=== PATIENT | female | born 1970 | race Caucasian/White ===

== ENCOUNTER 2017-02-05 20:03 | Emergency (ER) | payer MEDICAID ==
[~2017-02-05] VITALS: Ht 154.9 cm; Wt 90.9 kg
[~2017-02-05 20:03] MED LIST: ALPR0.255 PO; FERS325 PO; HYDR25TA PO
[2017-02-05 20:39] LABS: BASOPHILS % (AUTO) 0.1 % (0.0-2.0); EOSINOPHILS % (AUTO) 0.6 % (1.0-6.0); HEMATOCRIT 29.8 % (36-46); LYMPHOCYTES # (AUTO) 1.5 K/uL (1.0-4.8); LYMPHOCYTES % (AUTO) 11.8 % (22.0-44.0); MEAN CORPUSCULAR HEMOGLOBIN 19.1 pg (26.0-34.0); MEAN CORPUSCULAR HGB CONC 30.3 G/dL (31.0-37.0); MEAN CORPUSCULAR VOLUME 63 fL (80-100); MONOCYTES # (AUTO) 1.3 K/uL (0.1-1.0); MONOCYTES % (AUTO) 10.8 % (2.0-9.0); NEUTROPHILS # (AUTO) 9.5 K/uL (1.8-7.7); NEUTROPHILS % (AUTO) 76.7 % (40.0-70.0); PLATELET COUNT (AUTO) 405 K/uL (150-450); RED BLOOD CELL COUNT(AUTO) 4.73 MIL/uL (4.00-5.20); RED CELL DISTRIBUTION WIDTH 22.9 % (11.5-14.5); WHITE BLOOD COUNT (AUTO) 12.4 K/uL (4.5-11.0)
[2017-02-05 20:42] LABS: ADD UA MICROSCOPIC YES; APPEARANCE,URINE CLOUDY (CLEAR); GLUCOSE, URINE (UA) NEGATIVE (NEGATIVE); KETONES,URINE NEGATIVE (NEGATIVE); LEUKOCYTE ESTERASE ,URINE SMALL (NEGATIVE); OCCULT BLOOD,URINE NEGATIVE (NEGATIVE); PROTEIN,URINE NEGATIVE (NEGATIVE)
[2017-02-05 20:45] LABS: RBC,URINE 0-2 /HPF (0-2); SQUAMOUS EPITHELIAL CELL,UR Many /LPF (None Seen)
[2017-02-05 20:59] LABS: ANION GAP 9 mmol/L (8-16); CALCIUM, TOTAL 8.6 mg/dL (8.8-10.5); CARBON DIOXIDE 30 mmol/L (22-29); CHLORIDE 99 mmol/L (98-107); CREATININE 0.47 mg/dL (0.60-1.30); GLOMERULAR FILTR. RATE CALC > 60 mL/min (>60); POTASSIUM 3.4 mmol/L (3.5-5.1); SODIUM SERUM 138 mmol/L (136-145); UREA NITROGEN, BLOOD 7 mg/dL (7-18)
[2017-02-05 21:03] LABS: ALANINE AMINOTRANSFERASE 80 U/L (12-78); ALBUMIN 2.8 g/dL (3.4-5.0); ASPARTATE AMINOTRANSFERASE 63 U/L (15-37); BILIRUBIN,TOTAL 0.3 mg/dL (0.1-1.0); TOTAL PROTEIN, SERUM 7.6 g/dL (6.4-8.2)
[2017-02-05 21:08] LABS: RBC MORPHOLOGY COMMENT ABNORMAL RBC MORPH
[2017-02-05] MEDS ORDERED: BARIUM SULFATE 0.1% SUSPENSION 450 ML BOTTLE PO ONE (21:15)
[2017-02-05] MEDS ORDERED: MORPHINE SULFATE 4 MG/ML SYRINGE IVP ONE (21:15)
[2017-02-05] MEDS ORDERED: ONDANSETRON HCL 4 MG/2 ML VIAL IVP ONE (21:15)
[2017-02-05] MEDS ORDERED: SODIUM CHLORIDE 0.9% 1,000 ML IV ONE (21:15)
[2017-02-05] MEDS ORDERED: IOVERSOL 350 MG/ML 100 ML VIAL ONE (21:35)
[2017-02-06] MEDS ORDERED: MetroNIDAZOLE 250 MG TABLET PO ONE
[2017-02-06] MEDS ORDERED: CIPROFLOXACIN HCL 250 MG TABLET PO ONE
[2017-02-06 00:29] VITALS: BP 133/78
== END 2017-02-06 00:37 | disposition home or self-care (01) ==
LOC: EMS 20:05
DX: K57.92 Diverticulitis of intestine, part unspecified, without perforation or abscess without bleeding (principal); I10 Essential (primary) hypertension
CPT/HCPCS: 36415; 74177; 80053; 81001; 83690; 84703; 85025; 87086; 96374; 96375; 99285; J2270; J2405; J7030; Q9967; Z7610

== ENCOUNTER 2017-10-21 10:50 | Emergency (ER) | payer MEDICAID ==
[~2017-10-21] VITALS: Ht 152.4 cm; Wt 93.2 kg
[~2017-10-21 10:50] MED LIST changes: +FERR-89 PO; -FERS325 PO
[2017-10-21 11:16] VITALS: BP 145/91
[2017-10-21] MEDS ORDERED: ALPR0.5T8 PO (11:23)
[2017-10-21] MEDS ORDERED: IBUPROFEN 600 MG TABLET PO ONE (11:30)
== END 2017-10-21 12:12 | disposition home or self-care (01) ==
LOC: EMS 10:51
DX: J03.90 Acute tonsillitis, unspecified (principal); J02.9 Acute pharyngitis, unspecified; I10 Essential (primary) hypertension
CPT/HCPCS: 99283

== ENCOUNTER 2018-07-09 12:46 | Emergency (ER) | payer MEDICAID ==
[~2018-07-09] VITALS: Ht 157.5 cm; Wt 84.1 kg
[~2018-07-09 12:46] MED LIST changes: -ALPR0.255 PO; +ALPR0.5T8 PO
[2018-07-09] MEDS ORDERED: MICONAZOLE NITRATE 2% 85 GM POWDER TP ONE (13:15)
[2018-07-09 13:33] LABS: HEMOGLOBIN 10.9 g/dL (12.0-16.0); MEAN CORPUSCULAR HEMOGLOBIN 21.5 pg (26.0-34.0); MEAN CORPUSCULAR VOLUME 67 fL (80-100); PLATELET COUNT (AUTO) 358 K/uL (150-450); RED BLOOD CELL COUNT(AUTO) 5.04 MIL/uL (4.00-5.20); RED CELL DISTRIBUTION WIDTH 21.2 % (11.5-14.5)
[2018-07-09 13:39] LABS: ANION GAP 6 mmol/L (8-16); CALCIUM, TOTAL 9.1 mg/dL (8.8-10.5); CARBON DIOXIDE 30 mmol/L (22-29); CHLORIDE 103 mmol/L (98-107); CREATININE 0.49 mg/dL (0.60-1.30); GLOMERULAR FILTR. RATE CALC > 60 mL/min (>60); GLUCOSE,RANDOM 104 mg/dL (70-110); POTASSIUM 3.7 mmol/L (3.5-5.1); SODIUM SERUM 139 mmol/L (136-145); UREA NITROGEN, BLOOD 7 mg/dL (7-18)
[2018-07-09 13:45] LABS: ALANINE AMINOTRANSFERASE 182 U/L (12-78); ALBUMIN 2.8 g/dL (3.4-5.0); ALKALINE PHOSPHATASE 81 U/L (46-116); ASPARTATE AMINOTRANSFERASE 149 U/L (15-37); BILIRUBIN,TOTAL 0.4 mg/dL (0.1-1.0); TOTAL PROTEIN, SERUM 7.7 g/dL (6.4-8.2)
[2018-07-09 13:53] LABS: BAND NEUTROPHILS % (MANUAL) 3 % (0-5); EOSINOPHILS % (MANUAL) 1 % (1-6); LYMPHOCYTES % (MANUAL) 41 % (22-44); MONOCYTES % (MANUAL) 12 % (2-9); SEGMENTED NEUTROPHILS % 43 % (40-70)
[2018-07-09 14:10] VITALS: BP 130/64
== END 2018-07-09 14:32 | disposition home or self-care (01) ==
LOC: EMS 12:47
DX: B37.2 Candidiasis of skin and nail (principal); R74.0 Nonspecific elevation of levels of transaminase and lactic acid dehydrogenase [LDH]; F41.9 Anxiety disorder, unspecified; I10 Essential (primary) hypertension; Z79.899 Other long term (current) drug therapy
CPT/HCPCS: 99284

== ENCOUNTER 2019-05-30 08:33 | Emergency (ER) | payer SELFPAY ==
[~2019-05-30] VITALS: Ht 154.9 cm; Wt 90.9 kg
[~2019-05-30 08:33] MED LIST changes: -ALPR0.5T8 PO; -FERR-89 PO
[2019-05-30] MEDS ORDERED: ACET-2247 PO (08:38)
[2019-05-30] MEDS ORDERED: LIDOCAINE 1% 10 ML VIAL INJ ONE (10:30)
[2019-05-30] MEDS ORDERED: PENICILLIN V POTASSIUM 500 MG TABLET PO ONE (10:30)
[2019-05-30 11:28] VITALS: BP 146/71
== END 2019-05-30 11:30 | disposition home or self-care (01) ==
LOC: EMS 08:33
DX: K08.89 Other specified disorders of teeth and supporting structures (principal); F41.9 Anxiety disorder, unspecified; I10 Essential (primary) hypertension
CPT/HCPCS: 64400; 99284; J3490

== ENCOUNTER 2020-09-07 12:41 | Emergency (ER) | payer MEDICAID ==
[~2020-09-07] VITALS: Ht 162.6 cm; Wt 88.6 kg
[~2020-09-07 12:41] MED LIST changes: +ACET-2865 PO
[2020-09-07 12:42] VITALS: BP 163/76
[2020-09-07] MEDS ORDERED: KETOROLAC TROMETHAMINE 30 MG/ML VIAL IM ONE (13:30)
== END 2020-09-07 14:25 | disposition home or self-care (01) ==
LOC: EMS 12:43
DX: S29.012A Strain of muscle and tendon of back wall of thorax, initial encounter (principal); F41.9 Anxiety disorder, unspecified; I10 Essential (primary) hypertension; Z79.899 Other long term (current) drug therapy; X50.9XXA Other and unspecified overexertion or strenuous movements or postures, initial encounter; Y93.89 Activity, other specified; Y92.89 Other specified places as the place of occurrence of the external cause; Y99.8 Other external cause status
CPT/HCPCS: 96372; 99283; J1885

== ENCOUNTER 2021-02-22 13:42 | Emergency (ER) | payer MEDICAID ==
[~2021-02-22] VITALS: Ht 149.9 cm; Wt 90.9 kg
[~2021-02-22 13:42] MED LIST changes: -ACET-2865 PO
[2021-02-22 15:37] VITALS: BP 157/88
[2021-02-22] MEDS ORDERED: KETOROLAC TROMETHAMINE 60 MG/2 ML VIAL IM ONE (15:45)
[2021-02-22] MEDS ORDERED: LIDOCAINE 5% TRANSDERMAL PATCH TD ONE (15:45)
== END 2021-02-22 16:07 | disposition home or self-care (01) ==
LOC: EMS 13:49
DX: S29.012A Strain of muscle and tendon of back wall of thorax, initial encounter (principal); I10 Essential (primary) hypertension; X50.0XXA Overexertion from strenuous movement or load, initial encounter; Y93.89 Activity, other specified; Y92.89 Other specified places as the place of occurrence of the external cause; Y99.8 Other external cause status
CPT/HCPCS: 96372; 99283; J1885

== ENCOUNTER 2021-12-07 14:48 | Emergency (ER) | payer MEDICAID ==
[~2021-12-07] VITALS: Ht 154.9 cm; Wt 95.5 kg
[2021-12-07 15:22] VITALS: BP 131/83
[2021-12-07] MEDS ORDERED: KETOROLAC TROMETHAMINE 60 MG/2 ML VIAL IM ONE (15:30)
[2021-12-07] MEDS ORDERED: CYCLOBENZAPRINE HCL 10 MG TABLET PO ONE (15:30)
== END 2021-12-07 16:54 | disposition home or self-care (01) ==
LOC: EMS 14:55
DX: M25.511 Pain in right shoulder (principal); I10 Essential (primary) hypertension; Z79.899 Other long term (current) drug therapy
CPT/HCPCS: 73030; 96372; 99283; J1885

== ENCOUNTER 2022-09-10 15:01 | Emergency (ER) | payer MEDICAID, OTHER ==
[~2022-09-10] VITALS: Ht 167.6 cm; Wt 90.9 kg
[2022-09-10] MEDS ORDERED: ACETAMINOPHEN 325 MG TABLET PO ONE (16:15)
[2022-09-10 16:34] LABS: COVID AG,FIA SOURCE NASOPHARYNGEAL
[2022-09-10 16:54] LABS: INFLUENZA TYPE A NEGATIVE FOR TYPE A (NEGATIVE); INFLUENZA TYPE B NEGATIVE FOR TYPE B (NEGATIVE)
[2022-09-10 17:18] LABS: BASOPHILS % (AUTO) 0.9 % (0.0-2.0); EOSINOPHILS % (AUTO) 0.6 % (1.0-6.0); HEMATOCRIT 37.4 % (36-46); HEMOGLOBIN 12.6 g/dL (12.0-16.0); LYMPHOCYTES # (AUTO) 0.8 K/uL (1.0-4.8); LYMPHOCYTES % (AUTO) 15.9 % (22.0-44.0); MEAN CORPUSCULAR HEMOGLOBIN 28.6 pg (26.0-34.0); MEAN CORPUSCULAR HGB CONC 33.7 G/dL (31.0-37.0); MEAN CORPUSCULAR VOLUME 85 fL (80-100); MONOCYTES # (AUTO) 0.7 K/uL (0.1-1.0); MONOCYTES % (AUTO) 15.4 % (2.0-9.0); NEUTROPHILS # (AUTO) 3.2 K/uL (1.8-7.7); NEUTROPHILS % (AUTO) 67.2 % (40.0-70.0); PLATELET COUNT (AUTO) 377 K/uL (150-450); RED BLOOD CELL COUNT(AUTO) 4.41 MIL/uL (4.00-5.20); RED CELL DISTRIBUTION WIDTH 15.9 % (11.5-14.5)
[2022-09-10 17:26] LABS: ANION GAP 4 mmol/L (8-16); CARBON DIOXIDE 31 mmol/L (22-29); CHLORIDE 99 mmol/L (98-107); CREATININE 0.65 mg/dL (0.60-1.30); GLUCOSE,RANDOM 101 mg/dL (70-110); POTASSIUM 3.2 mmol/L (3.5-5.1); SODIUM SERUM 134 mmol/L (136-145); UREA NITROGEN, BLOOD 10 mg/dL (7-18)
[2022-09-10 17:27] LABS: CALCIUM, TOTAL 9.1 mg/dL (8.8-10.5)
[2022-09-10 17:32] LABS: GLOMERULAR FILTR. RATE CALC > 60 mL/min (>60)
[2022-09-10 17:33] LABS: ALANINE AMINOTRANSFERASE 55 U/L (12-78); ALBUMIN 3.5 g/dL (3.4-5.0); ALKALINE PHOSPHATASE 63 U/L (46-116); ASPARTATE AMINOTRANSFERASE 52 U/L (15-37); BILIRUBIN,TOTAL 0.3 mg/dL (0.1-1.0); TOTAL PROTEIN, SERUM 8.3 g/dL (6.4-8.2)
[2022-09-10 17:45] LABS: B-TYPE NATRIURETIC PEPTIDE 13 pg/mL (0-100)
[2022-09-10] MEDS ORDERED: CEFD300C18 PO (18:27)
[2022-09-10] MEDS ORDERED: AZIT250T9 PO (18:28)
[2022-09-10] MEDS ORDERED: CefTRIAXone 1 GM/DEXTROSE 50 ML IV ONE (18:30)
[2022-09-10] MEDS ORDERED: CefTRIAXone SODIUM 1 GM/VIAL IM ONE (18:45)
[2022-09-10] MEDS ORDERED: LIDOCAINE/PF 1% 2 ML VIAL IM ONE (18:45)
[2022-09-10 19:22] VITALS: BP 119/80
== END 2022-09-10 19:58 | disposition home or self-care (01) ==
LOC: EMS 15:06
DX: J18.9 Pneumonia, unspecified organism (principal); I10 Essential (primary) hypertension; Z20.822 Contact with and (suspected) exposure to COVID-19
CPT/HCPCS: 99285; 71045; 87426; 80053; 83880; 84484; 85025; 87040; 87804; 36415; 93005; 96372; J0696; J3490

== ENCOUNTER 2023-09-02 10:15 | Emergency (ER) | payer OTHER ==
[~2023-09-02] VITALS: Ht 152.4 cm; Wt 122.7 kg
[~2023-09-02 10:15] MED LIST changes: +CEFD300C18 PO
[2023-09-02 10:27] VITALS: TEMP 98.4
[2023-09-02] MEDS ORDERED: HYDR-4808 PO (12:27)
[2023-09-02] MEDS ORDERED: LORA-1000 PO (12:27)
[2023-09-02 12:35] VITALS: BP 150/84; PULSE 86; RESP 16
== END 2023-09-02 13:08 | disposition home or self-care (01) ==
LOC: EMS 10:19
DX: F41.9 Anxiety disorder, unspecified (principal); F32.A Depression, unspecified; Z98.890 Other specified postprocedural states
CPT/HCPCS: 99283; Z7502